=== PATIENT | male | born 1975 | race Caucasian/White ===

== ENCOUNTER 2022-02-05 11:49 | Inpatient (IN) | payer BC, SELFPAY ==
--- NOTE | ~2022-02-05 | XR_ITS ---
EXAMINATION: XR CHEST CLINICAL INFORMATION: Chest pain COMPARISON: None TECHNIQUE: 2 views of the chest were obtained. FINDINGS: The lungs are well-expanded and clear of acute pneumonic process. The heart size and pulmonary vascularity is normal. There is no pleural effusion. There are old healed right upper rib fractures. Old healed right clavicular fracture has been stabilized with metallic plate and screws. XR/XR chest 2V IMPRESSION: No acute cardiopulmonary process seen.
[2022-02-05 11:54] VITALS: BP 153/96; PULSE 105; RESP 19; TEMP 36.6; O2SAT 98; BMI 33.0
--- NOTE | 2022-02-05 11:59 | ECG_ITS ---
Test Reason : CHEST PAIN Blood Pressure : / mmHG Vent. Rate : 095 BPM Atrial Rate : 095 BPM P-R Int : 136 ms QRS Dur : 084 ms QT Int : 356 ms P-R-T Axes : 062 005 027 degrees QTc Int : 447 ms Normal sinus rhythm Normal ECG No previous ECGs available Referred By: Generic ED Physician Electronically Signed By:LINDA DOMINGUEZ
[2022-02-05 13:52] LABS: MANUAL DIFF FLAG NO
[2022-02-05 13:59] LABS: Basophils Percent Auto 0.4 % (0-2); Eosinophils Percent Auto 0.1 % (0-4); Hematocrit 46.1 % (42.0-52.0); Hemoglobin 15.9 g/dl (14.0-18.0); Imm Gran Abs Auto 0.04 X10*3/uL (0.00-0.03); Imm Gran Pct Auto 0.4 % (0.0-0.4); Lymphocytes Absolute Auto 1.4 X10*3/uL (1.2-4.9); Lymphocytes Percent Auto 15.1 % (20-40); Mean Corpuscular HGB Conc 34.5 g/dl (31.0-36.0); Mean Corpuscular Hemoglobin 30.7 pg (27.0-33.0); Mean Platelet Volume 10.1 fL (9.4-12.4); Monocytes Absolute Auto 0.9 X10*3/uL (0.1-1.2); Monocytes Percent Auto 9.1 % (2-11); Neutrophils Absolute Auto 7.1 x10*3/uL (2.0-8.3); Neutrophils Percent Auto 74.9 % (45-73); Platelet Count 183 X10*3/uL (160-400); Red Blood Count 5.18 X10*6/uL (4.60-5.80); Red Cell Distribution Width 12.6 % (11.0-16.0); White Blood Count 9.5 X10*3/uL (4.8-10.8)
[2022-02-05 14:09] LABS: Ethanol 246 mg/dL
[2022-02-05 14:11] LABS: Anion Gap 20 (12-20); Blood Urea Nitrogen 10 mg/dL (9-16); Calcium 9.4 mg/dL (8.4-10.2); Carbon Dioxide 24 mmol/L (22-29); Chloride 99 mmol/L (96-108); Creatinine Clr Calc Pharmacy 144.8; Estimated Glomerular Filt Rate > 60; Glucose Random 125 mg/dL (60-115); Potassium 4.1 mmol/L (3.3-5.1); Sodium 139 mmol/L (135-145)
[2022-02-05 14:18] LABS: Troponin-I High Sensitivity < 3.5 ng/L (<3.5-35.0)
[2022-02-05] MEDS: 0.9 % Sodium Chloride 1,000 ML 999 ML IV (14:40)
[2022-02-05 15:03] LABS: Magnesium 2.6 mg/dL (1.6-2.6)
--- NOTE | 2022-02-05 15:08 | ED_ITS ---
HPI - General Adult General Chief complaint: General Medical Stated complaint: chest tightness/anxiety Time Seen by Provider: 02/05/22 14:20 Source: patient and family Mode of arrival: ambulatory Limitations: no limitations History of Present Illness HPI narrative: 47-year-old male came in for evaluation of possible alcohol withdrawal. Patient just moved from [place] to [place] for a job, patient lost a job and feeling very anxious, patient was drinking alcohol for the past 5 days, history of withdrawal seizures in the past, last drink was 6- 8 hours ago, Patient feel depressed but no SI or HI, no hallucination, patient had multiple hospitalization for alcohol withdrawal. Patient is requesting hospitalization feels it is going to be bad withdrawal symptoms. Related Data Allergies Allergy/AdvReac Type Severity Reaction Status Date / Time No Known Allergies Allergy Verified 02/05/22 14:40 Review of Systems Review of Systems: All other systems are reviewed and are negative Constitutional: Reports as per HPI and Reports no additional constitutional complaints Eyes: Reports as per HPI and Reports no additional eye complaints Reports system reviewed and no additional complaints, except as documented Cardiovascular: Reports as per HPI and Reports no additional cardiovascular complaints Respiratory: Reports as per HPI and Reports no additional respiratory complaints Gastrointestinal: Reports as per HPI and Reports no additional gastrointestinal complaints Genitourinary: Reports no additional female genitourinary complaints Musculoskeletal: Reports no additional musculoskeletal complaints Skin/Breast: Reports system reviewed and no additional complaints, except as docu Psychiatric: Reports no additional psychiatric complaints Endocrine: Reports no additional endocrine complaints Hematologic/Lymphatic: Reports no additional hematologic/lymphatic complaints Allergic/Immunologic: Reports no additional allergic/immunologic complaints Reports system reviewed and no additional complaints, except as documented and Reports Abnormal speech present [facility] Social History Social History Advance Directives: No Advance Directives Information Provided: No Physical Exam ED Vital Signs: Vital Signs - 24 hr 02/05/22 11:54 Temperature 98 F Pulse Rate 105 H Respiratory Rate 19 Blood Pressure 153/96 H Pulse Oximetry 98 BMI result Body Mass Index 33.0 Vital signs have been reviewed as appeared to be correct. Blood pressure normal. Heart rate elevated. Respiration rate normal. Temperature normal. Oxygen saturation normal. Appearance: Alert. Oriented X3. No acute distress. Anxious Head: Normal external exam. Normocephalic. Atraumatic. No Grajeda signs noted. No raccoon eyes noted Eyes: PERRLA. EOMI. Conjunctiva and sclera normal. Eyelids normal. ENT: TM's Normal. Pharynx normal. Uvula midline. Moist mucous membranes. No trismus noted. No drooling noted. No muffled voice noted. Neck: Normal inspection. Neck supple. FROM. No adenopathy. Thyroid Normal. No meningeal signs. No neck mass noted. CVS: Normal heart rate and rhythm. Heart sound normal. No murmurs noted. Pulses normal throughout. Respiratory: No respiratory distress. Painless inspiration. Breath sounds normal. No wheezes/rales/rhonchi noted. Chest nontender. No accessory muscle usage noted or decreased air movement noted. Abdomen: Soft and nontender. Bowel sounds normal in all 4 quadrants. No distention noted. No organomegaly noted. No visible injury noted. Back: No CVA tenderness. Full range of motion noted. Skin: Skin warm and dry. Normal skin color. Normal skin turgor. No rashes/lesions/lacerations noted. Extremities: No lower extremity edema. Extremities exhibit normal range of motion. Extremities nontender. Mild involuntarily tremors Neuro: Oriented X 3. Cranial nerve exam: II-XII are grossly intact No motor deficit. No sensory deficit. Reflexes normal. Course Course Course Narrative: Assessment and plan 47-year-old male has been bingeing drinking alcohol for the past 5 days, history of withdrawal seizure, patient feels anxious with gradual worsening his tremors and fasciculation, CIWA score is 10, patient had multiple hospitalization for babble alcohol withdrawal and patient has subjective feeling that this will get worse. Will start the patient on phenobarb. Medical Decision Making Lab Data Lab results reviewed: Yes I reviewed the patient's lab results. Result diagrams: 02/05/22 13:39 02/05/22 13:39 Labs: Lab Results 02/05/22 02/05/22 02/05/22 Range/Units 13:39 13:39 13:39 WBC 9.5 (4.8-10.8) X10*3/uL RBC 5.18 (4.60-5.80) X10*6/uL Hgb 15.9 (14.0-18.0) g/dl Hct 46.1 (42.0-52.0) % MCV 89.0 (80.0-98.0) fL MCH 30.7 (27.0-33.0) pg MCHC 34.5 (31.0-36.0) g/dl RDW 12.6 (11.0-16.0) % Plt Count 183 (160-400) X10*3/uL MPV 10.1 (9.4-12.4) fL Immature Gran % (Auto) 0.4 (0.0-0.4) % Neut % (Auto) 74.9 H (45-73) % Lymph % (Auto) 15.1 L (20-40) % [place] % (Auto) 9.1 (2-11) % Eos % (Auto) 0.1 (0-4) % Baso % (Auto) 0.4 (0-2) % Lymph # (Auto) 1.4 (1.2-4.9) X10*3/uL [place] # (Auto) 0.9 (0.1-1.2) X10*3/uL Eos # (Auto) 0.0 (0.0-0.4) X10*3/uL Baso # (Auto) 0.0 (0.0-0.2) X10*3/uL Abs Immat Gran (auto) 0.04 H (0.00-0.03) X10*3/uL Absolute Neuts (auto) 7.1 (2.0-8.3) x10*3/uL Absolute Nucleated RBC 0.000 (0.0-0.012) X10*3/uL Nucleated RBC % (auto) 0.0 (0.0-0.2) /100WBC Sodium 139 (135-145) mmol/L Potassium 4.1 (3.3-5.1) mmol/L Chloride 99 (96-108) mmol/L Carbon Dioxide 24 (22-29) mmol/L Anion Gap 20 (12-20) BUN 10 (9-16) mg/dL Creatinine 0.85 (0.5-1.4) mg/dL Estim Creat Clear Calc 144.8 Estimated GFR > 60 Random Glucose 125 H (60-115) mg/dL Calcium 9.4 (8.4-10.2) mg/dL Magnesium 2.6 (1.6-2.6) mg/dL Troponin I High Sens < 3.5 (<3.5-35.0) ng/L Ethyl Alcohol mg/dL 02/05/22 Range/Units 13:39 WBC (4.8-10.8) X10*3/uL RBC (4.60-5.80) X10*6/uL Hgb (14.0-18.0) g/dl Hct (42.0-52.0) % MCV (80.0-98.0) fL MCH (27.0-33.0) pg MCHC (31.0-36.0) g/dl RDW (11.0-16.0) % Plt Count (160-400) X10*3/uL MPV (9.4-12.4) fL Immature Gran % (Auto) (0.0-0.4) % Neut % (Auto) (45-73) % Lymph % (Auto) (20-40) % [place] % (Auto) (2-11) % Eos % (Auto) (0-4) % Baso % (Auto) (0-2) % Lymph # (Auto) (1.2-4.9) X10*3/uL [place] # (Auto) (0.1-1.2) X10*3/uL Eos # (Auto) (0.0-0.4) X10*3/uL Baso # (Auto) (0.0-0.2) X10*3/uL Abs Immat Gran (auto) (0.00-0.03) X10*3/uL Absolute Neuts (auto) (2.0-8.3) x10*3/uL Absolute Nucleated RBC (0.0-0.012) X10*3/uL Nucleated RBC % (auto) (0.0-0.2) /100WBC Sodium (135-145) mmol/L Potassium (3.3-5.1) mmol/L Chloride (96-108) mmol/L Carbon Dioxide (22-29) mmol/L Anion Gap (12-20) BUN (9-16) mg/dL Creatinine (0.5-1.4) mg/dL Estim Creat Clear Calc Estimated GFR Random Glucose (60-115) mg/dL Calcium (8.4-10.2) mg/dL Magnesium (1.6-2.6) mg/dL Troponin I High Sens (<3.5-35.0) ng/L Ethyl Alcohol 246 mg/dL Discharge Plan Discharge Clinical Impression: Alcohol withdrawal, Anxiety Patient Disposition: Admitted As Inpatient
[2022-02-05 15:22] VITALS: BP 152/93; PULSE 102; RESP 17; O2SAT 93
--- NOTE | 2022-02-05 15:27 | PC.NURSE ---
pt reports feeling stressed out and anxious moved from [place] for work and he is not a daily drinker but do to the stress was binge drinking the last few days, reports having abd pain 7/10 a slight headache, no visible tremor at this time. pt states last drink was last night, vs stable
[2022-02-05] MEDS: PHENobarbitaL sodium 130 MG/ML VIAL 256.1 MG IM (15:38)
[2022-02-05 16:03] LABS: Alanine Aminotransferase 53 U/L (0-40); Albumin Level 4.7 g/dL (3.5-5.0); Alkaline Phosphatase 84 U/L (39-117); Aspartate Amino Transferase 53 U/L (5-37); Bilirubin Direct 0.2 mg/dL (0.0-0.5); Bilirubin Total 0.5 mg/dL (0.0-1.0); Total Protein 7.4 g/dL (6.5-8.0)
--- NOTE | 2022-02-05 16:08 | P.HPHOSP_ITS ---
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 He resides in [place] [facility]. He has been admitted to hospitals for alcohol withdrawal in the past, most recently in October 2021. He has also had alcohol withdrawal seizures in the past, though none in the past 5 years. He thinks he did have seizures as child, though. He has anxiety but does not see a primary care provider or a behavioral health provider. No other chronic medical problems. He is anxious and depressed but denies SI/HI or AH/VH. He feels tremulous and CIWA in the ED was 10. He was tachycardic and hypertensive. He was started on phenobarbital taper. He endorses chest pressure/chest pain but states he gets this whenever he is anxious. Review of Systems Review of Systems: Yes all other systems are reviewed and are negative [facility] Medical History (Updated 02/05/22 @ 16:13 by Yoni Snow MD) Anxiety History of fracture of clavicle Pertinent family history: Mother had leukemia and last year. She also had a CVA due to MVP. Surgical History (Updated 02/05/22 @ 16:13 by Yoni Snow MD) History of orthopedic surgery Social History Alcohol intake: current Patient Tobacco Use Status: Never used Tobacco Use of substances other than those prescribed or required for medical reasons: No Advance Directives: No Advance Directives Information Provided: No Narrative: EtOH binge drinking quit smoking tobacco 10 yr ago uses cannabis no other substances Meds Allergies Allergy/AdvReac Type Severity Reaction Status Date / Time No Known Allergies Allergy Verified 02/05/22 14:40 Active Medications: Current Medications Acetaminophen (Acetaminophen 325 Mg Tablet) 650 mg PO Q6H PRN PRN Reason: pain or fever Al Hydroxide/Mg Hydroxide (Magnesium Hydrox/Alum Hydrox 30 Ml Oral.Susp) 30 ml PO Q4H PRN PRN Reason: Indigestion Enoxaparin Sodium (Enoxaparin Sodium 40 Mg/0.4 Ml Syringe) 40 mg SUBCUT Q24H [place] Folic Acid (Folic Acid 1 Mg Tablet) 1 mg PO DAILY [facility] Lactated Ringer's (Lr) 1,000 mls @ 100 mls/hr IVCONT .Q10H [place] Medication (No Benzodiazepines) 1 each MISCELLANE DAILY [facility] Multivitamins/Vitamin C (Multivitamin Tablet) 1 tab PO DAILY [facility] Ondansetron HCl (Ondansetron Hcl 4 Mg/2 Ml Vial) 4 mg IVPUSH Q4H PRN PRN Reason: nausea/vomiting Phenobarbital (Phenobarbital 30 Mg Tablet) 60 mg PO BID [place]; Protocol Stop: 02/07/22 21:01 Phenobarbital (Phenobarbital 30 Mg Tablet) 30 mg PO BID [place]; Protocol Stop: 02/09/22 21:01 Phenobarbital (Phenobarbital 30 Mg Tablet) 30 mg PO DAILY [place]; Protocol Stop: 02/11/22 09:01 Phenobarbital Sodium (Phenobarbital Sodium 130 Mg/Ml Vial) 192.4 mg IM Q3H [place]; Protocol Stop: 02/05/22 21:01 Sodium Chloride (0.9 % Sodium Chloride Flush 3 Ml Syringe) 3 ml IVFLUSH QSHIFT [facility] Thiamine HCl (Thiamine Hcl 100 Mg Tablet) 100 mg PO DAILY [facility] Home Medications Medication Instructions Recorded Confirmed Last Taken Type No Known Home Meds 02/05/22 02/05/22 Unknown History Physical Exam Vital Signs and Narrative: Vital Signs: Last Vital Signs Temp 98 F 02/05/22 11:54 Pulse 102 H 02/05/22 15:22 Resp 17 02/05/22 15:22 BP 152/93 H 02/05/22 15:22 Pulse Ox 93 02/05/22 15:22 BMI result Body Mass Index 33.0 Gen: anxious, tremulous HEENT: sclera anicteric, moist mucus membranes Neck: supple Lungs: clear to auscultation bilaterally Heart: regular, tachycardic, no murmurs Abd: soft, non-tender, non-distended, obese Ext: no edema Skin: warm/well-perfused Neuro: alert and oriented x3, tremulous Psych: appropriate affect Results Labs CBC and Chem 7: 02/05/22 13:39 02/05/22 13:39 Labs: Laboratory Results - last 24 hr 02/05/22 02/05/22 02/05/22 13:39 13:39 13:39 MCV 89.0 MCH 30.7 MCHC 34.5 RDW 12.6 Plt Count 183 MPV 10.1 Immature Gran % (Auto) 0.4 Neut % (Auto) 74.9 H Lymph % (Auto) 15.1 L [place] % (Auto) 9.1 Eos % (Auto) 0.1 Baso % (Auto) 0.4 Lymph # (Auto) 1.4 [place] # (Auto) 0.9 Eos # (Auto) 0.0 Baso # (Auto) 0.0 Abs Immat Gran (auto) 0.04 H Absolute Neuts (auto) 7.1 Absolute Nucleated RBC 0.000 Nucleated RBC % (auto) 0.0 Anion Gap 20 Estim Creat Clear Calc 144.8 Estimated GFR > 60 Random Glucose 125 H Calcium 9.4 Magnesium 2.6 Total Bilirubin 0.5 Direct Bilirubin 0.2 AST 53 H ALT 53 H Alkaline Phosphatase 84 Total Protein 7.4 Albumin 4.7 Ethyl Alcohol 246 EKG shows NSR. Imaging Radiologist's Impressions: Impressions Chest X-Ray 02/05/22 12:36 IMPRESSION: No acute cardiopulmonary process seen. Assessment and Plan (1) Alcohol withdrawal: Status: Acute (2) Anxiety: Status: Acute Plan 47yo M visiting locally from [place] for work, presenting with severe alcohol withdrawal with history of prior withdrawal seizures. # alcohol withdrawal - admit to [facility]MC, place on phenobarbital taper, give PO vitamins, consult Addiction Medicine # anxiety/substance-induced mood disorder - Addiction Medicine consult # atypical chest pain - initial hsTn-I <3.5; repeat at 3 hr; EKG without ischemic changes # VTE ppx - LMWH # code - full In my professional opinion, patient likely will stay 2 midnights in hospital due to the above reasons [severe alcohol withdrawal] Quality Stroke Does the patient have a stroke diagnosis?: No VTE Prior VTE?: No VTE Risk Level:: Medical - moderate - high VTE Device Contraindication: N/A - Device Ordered VTE Drug Contraindication: N/A - Med Ordered
--- NOTE | 2022-02-05 16:11 | PHA.MEDREC ---
Pharmacy Consult ? Medication Reconciliation Pharmacy has completed the medication reconciliation.
[2022-02-05] MEDS: Thiamine HCL 100 MG TABLET PO (16:34)
[2022-02-05] MEDS: Enoxaparin Sodium 40 MG/0.4 ML SYRINGE SUBCUT (16:38)
[2022-02-05] MEDS: Lactated Ringers 1,000 ML 100 ML IVCONT (17:31)
[2022-02-05 17:58] VITALS: BP 152/72; PULSE 99; RESP 16; O2SAT 96
[2022-02-05 18:04] LABS: Troponin-I High Sensitivity 4.2 ng/L (<3.5-35.0)
[2022-02-05 18:08] LABS: COVID-19 Test Negative (Negative)
[2022-02-05] MEDS: PHENobarbitaL sodium 130 MG/ML VIAL 192.4 MG IM ×2 (18:10→21:01)
--- NOTE | 2022-02-05 18:48 | PC.NURSE ---
report given to overflow
--- NOTE | 2022-02-05 21:28 | PC.NURSE ---
Pt arrived from ED into overflow bed 4 after report received from CINDI Nevarez at change of shift. Pt has family at bedside. Pt alert and oriented X3, pleasant and cooperative but anxious. Pt requesting something for anxiety and for sleep. Pt also stated the beeping on the tele monitor had to stop or he was leaving. The volume was lowered as low as it will go (1) and staff attempted to find him some ear plugs. Dr notified about the patients med request. LS-CTA. No cough, sob. BS+. Pt denies N/V/D. Voiding in urinal. PP+, no edema. Skin intact. Pt denies pain/discomfort. IV fluids infusing as ordered. See charting for CIWA. Will continue to monitor.
[2022-02-05] MEDS: hydrOXYzine HCL 25 MG TABLET PO (23:16)
[2022-02-05] MEDS: Melatonin 3 MG TABLET 6 MG PO (23:16)
[2022-02-06] VITALS (7 sets, daily range): BP systolic 134–175; BP diastolic 72–96; PULSE 70–118; RESP 16–19; TEMP 36.1–36.6; O2SAT 94–96
--- NOTE | 2022-02-06 00:12 | PC.NURSE ---
Patient given medications for anxiety and sleep per his request around 2315. Pt has a family member who is staying with him in room. Pt resting comfortably at present time. Will continue to monitor.
[2022-02-06] MEDS: Lactated Ringers 1,000 ML 100 ML IVCONT ×2 (05:58→16:16)
[2022-02-06 06:24] LABS: Hematocrit 40.9 % (42.0-52.0); Hemoglobin 13.9 g/dl (14.0-18.0); Mean Corpuscular Hemoglobin 30.5 pg (27.0-33.0); Mean Corpuscular Volume 89.9 fL (80.0-98.0); Mean Platelet Volume 10.1 fL (9.4-12.4); Platelet Count 142 X10*3/uL (160-400); Red Blood Count 4.55 X10*6/uL (4.60-5.80); Red Cell Distribution Width 12.6 % (11.0-16.0); White Blood Count 8.3 X10*3/uL (4.8-10.8)
[2022-02-06 06:30] LABS: Prothrombin Time 11.1 SEC (9.9-13.0)
[2022-02-06 06:51] LABS: Alanine Aminotransferase 43 U/L (0-40); Albumin Level 3.9 g/dL (3.5-5.0); Alkaline Phosphatase 69 U/L (39-117); Anion Gap 17 (12-20); Aspartate Amino Transferase 45 U/L (5-37); Blood Urea Nitrogen 14 mg/dL (9-16); Calcium 8.7 mg/dL (8.4-10.2); Carbon Dioxide 22 mmol/L (22-29); Chloride 102 mmol/L (96-108); Creatinine Clr Calc Pharmacy 150.1; Estimated Glomerular Filt Rate > 60; Glucose Random 103 mg/dL (60-115); Magnesium 2.3 mg/dL (1.6-2.6); Sodium 137 mmol/L (135-145); Total Protein 6.1 g/dL (6.5-8.0)
--- NOTE | 2022-02-06 08:39 | MHC.CM.PN ---
THIS CM ATTEMPTED TO MEET W/PT HOWEVER PT OFF UNIT, CM WILL REVISIT.
[2022-02-06 09:14] LABS: Troponin-I High Sensitivity < 3.5 ng/L (<3.5-35.0)
[2022-02-06] MEDS: hydrOXYzine HCL 25 MG TABLET PO ×3 (10:04→22:58)
[2022-02-06] MEDS: Folic Acid 1 MG TABLET PO (10:04)
[2022-02-06] MEDS: Multivitamin TABLET 1 TAB PO (10:04)
[2022-02-06] MEDS: PHENobarbitaL 30 MG TABLET 60 MG PO ×2 (10:04→20:39)
[2022-02-06] MEDS: Thiamine HCL 100 MG TABLET PO (10:04)
--- NOTE | 2022-02-06 11:34 | P.PNIM_ITS ---
Subjective Subjective Date of Service: 02/06/22 Interval History: Anxious but less tremulous. Tolerated breakfast but some nausea + epigastric discomfort Review of Systems Review of Systems: Yes all other systems are reviewed and are negative Physical Exam Vital Signs: Vital Signs: Last Vital Signs Temp 97.8 F 02/06/22 09:47 Pulse 95 02/06/22 09:47 Resp 18 02/06/22 09:47 BP 175/91 H 02/06/22 09:47 Pulse Ox 96 02/06/22 09:47 BMI result Body Mass Index 33.0 Gen: tired HEENT: sclera anicteric, moist mucus membranes Neck: supple Lungs: clear to auscultation bilaterally Heart: regular rate and rhythm, no murmurs Abd: soft, minimially tender, no reboud, obese Ext: no edema Skin: warm/well-perfused Neuro: alert and oriented x3, no focal findings Psych: appropriate affect Objective Data Active Medications Acetaminophen (Acetaminophen 325 Mg Tablet) 650 mg PO Q6H PRN PRN Reason: pain or fever Al Hydroxide/Mg Hydroxide (Magnesium Hydrox/Alum Hydrox 30 Ml Oral.Susp) 30 ml PO Q4H PRN PRN Reason: Indigestion Enoxaparin Sodium (Enoxaparin Sodium 40 Mg/0.4 Ml Syringe) 40 mg SUBCUT Q24H [facility] Last Admin: 02/05/22 16:38 Dose: 40 mg Documented by: KAY Folic Acid (Folic Acid 1 Mg Tablet) 1 mg PO DAILY [facility] Last Admin: 02/06/22 10:04 Dose: 1 mg Documented by: COTEMA Hydroxyzine HCl (Hydroxyzine Hcl 25 Mg Tablet) 25 mg PO Q6H PRN PRN Reason: Anxiety Last Admin: 02/06/22 10:04 Dose: 25 mg Documented by: JOSE Lactated Ringer's (Lr) 1,000 mls @ 100 mls/hr IVCONT .Q10H [facility] Last Admin: 02/06/22 05:58 Dose: 100 mls/hr Documented by: ALEJANDRO Medication (No Benzodiazepines) 1 each MISCELLANE DAILY [facility] Melatonin (Melatonin 3 Mg Tablet) 6 mg PO BEDTIME PRN PRN Reason: Sleep Last Admin: 02/05/22 23:16 Dose: 6 mg Documented by: HO.[email or web address] Multivitamins/Vitamin C (Multivitamin Tablet) 1 tab PO DAILY [facility] Last Admin: 02/06/22 10:04 Dose: 1 tab Documented by: JOSE Ondansetron HCl (Ondansetron Hcl 4 Mg/2 Ml Vial) 4 mg IVPUSH Q4H PRN PRN Reason: nausea/vomiting Phenobarbital (Phenobarbital 30 Mg Tablet) 60 mg PO BID [facility]; Protocol Stop: 02/07/22 21:01 Last Admin: 02/06/22 10:04 Dose: 60 mg Documented by: COTPERCY Phenobarbital (Phenobarbital 30 Mg Tablet) 30 mg PO BID [facility]; Protocol Stop: 02/09/22 21:01 Phenobarbital (Phenobarbital 30 Mg Tablet) 30 mg PO DAILY [facility]; Protocol Stop: 02/11/22 09:01 Sodium Chloride (0.9 % Sodium Chloride Flush 3 Ml Syringe) 3 ml IVFLUSH QSHIFT [facility] Last Admin: 02/06/22 08:22 Dose: Not Given Documented by: KRISTIAN Non-Admin Reason: IV Running Thiamine HCl (Thiamine Hcl 100 Mg Tablet) 100 mg PO DAILY [facility] Last Admin: 02/06/22 10:04 Dose: 100 mg Documented by: JOSE Labs CBC & Chem 7: 02/06/22 06:01 02/06/22 06:01 Labs: Laboratory Results - last 24 hr 02/05/22 02/05/22 02/05/22 13:39 13:39 13:39 MCV 89.0 MCH 30.7 MCHC 34.5 RDW 12.6 Plt Count 183 MPV 10.1 Immature Gran % (Auto) 0.4 Neut % (Auto) 74.9 H Lymph % (Auto) 15.1 L [place] % (Auto) 9.1 Eos % (Auto) 0.1 Baso % (Auto) 0.4 Lymph # (Auto) 1.4 [place] # (Auto) 0.9 Eos # (Auto) 0.0 Baso # (Auto) 0.0 Abs Immat Gran (auto) 0.04 H Absolute Neuts (auto) 7.1 Absolute Nucleated RBC 0.000 Nucleated RBC % (auto) 0.0 PT INR Anion Gap 20 Estim Creat Clear Calc 144.8 Estimated GFR > 60 Random Glucose 125 H Calcium 9.4 Magnesium 2.6 Total Bilirubin 0.5 Direct Bilirubin 0.2 AST 53 H ALT 53 H Alkaline Phosphatase 84 Total Protein 7.4 Albumin 4.7 Ethyl Alcohol 246 COVID-19 ([facility]) COVID-19 Clin Com 02/05/22 02/06/22 02/06/22 17:36 06:01 06:01 MCV 89.9 MCH 30.5 MCHC 34.0 RDW 12.6 Plt Count 142 L MPV 10.1 Immature Gran % (Auto) Neut % (Auto) Lymph % (Auto) [place] % (Auto) Eos % (Auto) Baso % (Auto) Lymph # (Auto) [place] # (Auto) Eos # (Auto) Baso # (Auto) Abs Immat Gran (auto) Absolute Neuts (auto) Absolute Nucleated RBC 0.000 Nucleated RBC % (auto) 0.0 PT 11.1 INR 1.0 Anion Gap Estim Creat Clear Calc Estimated GFR Random Glucose Calcium Magnesium Total Bilirubin Direct Bilirubin AST ALT Alkaline Phosphatase Total Protein Albumin Ethyl Alcohol COVID-19 ([facility]) Negative COVID-19 Clin Com See Note 02/06/22 06:01 MCV MCH MCHC RDW Plt Count MPV Immature Gran % (Auto) Neut % (Auto) Lymph % (Auto) [place] % (Auto) Eos % (Auto) Baso % (Auto) Lymph # (Auto) [place] # (Auto) Eos # (Auto) Baso # (Auto) Abs Immat Gran (auto) Absolute Neuts (auto) Absolute Nucleated RBC Nucleated RBC % (auto) PT INR Anion Gap 17 Estim Creat Clear Calc 150.1 Estimated GFR > 60 Random Glucose 103 Calcium 8.7 D Magnesium 2.3 Total Bilirubin 1.0 Direct Bilirubin AST 45 H ALT 43 H Alkaline Phosphatase 69 Total Protein 6.1 L Albumin 3.9 Ethyl Alcohol COVID-19 ([facility]) COVID-19 Clin Com Assessment and Plan (1) Alcohol withdrawal: Status: Acute Plan 47yo M visiting locally from [place] for work, presenting with severe alcohol withdrawal with history of prior withdrawal seizures. # alcohol withdrawal - continue phenobarbital taper + B vitamins. Addiction Medicine consult pending # anxiety/substance-induced mood disorder - Addiction Medicine consult # alcoholic gastritis - PPI # atypical chest pain - no ischemic changes on EKG, hs-Tn-I low, likely due to anxiety # VTE ppx - LMWH In my clinical judgment, the patient requires continued hospitalization for ongoing management of alcohol withdrawal and is high risk for withdrawal seizures Quality Stroke Does the patient have a stroke diagnosis?: No VTE Prior VTE?: No VTE Risk Level:: Medical - moderate - high VTE Device Contraindication: N/A - Device Ordered VTE Drug Contraindication: N/A - Med Ordered
--- NOTE | 2022-02-06 12:30 | HO.ADDICT_ITS ---
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 He resides in [facility].? He has been admitted to hospitals for alcohol withdrawal in the past, most recently in October 2021.? He has also had alcohol withdrawal seizures in the past, though none in the past 5 years.? He thinks he did have seizures as child, though.? He has anxiety but does not see a primary care provider or a behavioral health provider.? No other chronic medical problems. He is anxious and depressed but denies SI/HI or AH/VH.? He feels tremulous and CIWA in the ED was 10. He was tachycardic and hypertensive.? He was started on phenobarbital taper. He endorses chest pressure/chest pain but states he gets this whenever he is anxious. Patient seen in room 354. and RSRN present during interview. Patient awake , alert and engaged in interview. Anxious affect. Reports he has never received any type of treatment for alcohol use disorder, aside from hospitalization(s) to treat withdrawal. In terms of family history he reports grandparents likely had alcohol use disorder Denies any other substance use Not engaged with any providers or recovery supports Identified anxiety as a trigger to alcohol use as well as a coping strategy for stuff I haven't dealt with Verbalizing interest in addressing alcohol use and would like to trial medication. Discussed options with patient and . Reviewed side effects, dosing, goals of treatment Review of Systems Constitutional: Reports as per HPI Diagnostics Vital Signs (24Hr): Vital Signs - 24 hr 02/05/22 15:22 02/05/22 17:58 02/06/22 00:00 Temperature Pulse Rate 102 H 99 100 Respiratory Rate 17 16 16 Blood Pressure 152/93 H 152/72 H 157/81 H Pulse Oximetry 93 96 02/06/22 04:01 02/06/22 06:25 02/06/22 09:47 Temperature 97.0 F 97.8 F Pulse Rate 70 93 95 Respiratory Rate 16 16 18 Blood Pressure 134/85 175/91 H Pulse Oximetry 94 96 BMI result Body Mass Index 33.0 Labs Results: 02/06/22 06:01 02/06/22 06:01 Labs: Laboratory Results - last 48 hr 02/05/22 02/05/22 02/05/22 13:39 13:39 13:39 WBC 9.5 RBC 5.18 Hgb 15.9 Hct 46.1 MCV 89.0 MCH 30.7 MCHC 34.5 RDW 12.6 Plt Count 183 MPV 10.1 Immature Gran % (Auto) 0.4 Neut % (Auto) 74.9 H Lymph % (Auto) 15.1 L Kimball % (Auto) 9.1 Eos % (Auto) 0.1 Baso % (Auto) 0.4 Lymph # (Auto) 1.4 Kimball # (Auto) 0.9 Eos # (Auto) 0.0 Baso # (Auto) 0.0 Abs Immat Gran (auto) 0.04 H Absolute Neuts (auto) 7.1 Absolute Nucleated RBC 0.000 Nucleated RBC % (auto) 0.0 PT INR Sodium 139 Potassium 4.1 Chloride 99 Carbon Dioxide 24 Anion Gap 20 BUN 10 Creatinine 0.85 Estim Creat Clear Calc 144.8 Estimated GFR > 60 Random Glucose 125 H Calcium 9.4 Magnesium 2.6 Total Bilirubin 0.5 Direct Bilirubin 0.2 AST 53 H ALT 53 H Alkaline Phosphatase 84 Troponin I High Sens < 3.5 Total Protein 7.4 Albumin 4.7 Ethyl Alcohol COVID-19 ([facility]) COVID-19 Clin Com 02/05/22 02/05/22 02/05/22 13:39 17:36 17:38 WBC RBC Hgb Hct MCV MCH MCHC RDW Plt Count MPV Immature Gran % (Auto) Neut % (Auto) Lymph % (Auto) Kimball % (Auto) Eos % (Auto) Baso % (Auto) Lymph # (Auto) Kimball # (Auto) Eos # (Auto) Baso # (Auto) Abs Immat Gran (auto) Absolute Neuts (auto) Absolute Nucleated RBC Nucleated RBC % (auto) PT INR Sodium Potassium Chloride Carbon Dioxide Anion Gap BUN Creatinine Estim Creat Clear Calc Estimated GFR Random Glucose Calcium Magnesium Total Bilirubin Direct Bilirubin AST ALT Alkaline Phosphatase Troponin I High Sens 4.2 Total Protein Albumin Ethyl Alcohol 246 COVID-19 ([facility]) Negative COVID-19 [facility] Com See Note 02/06/22 02/06/22 02/06/22 06:01 06:01 06:01 WBC 8.3 RBC 4.55 L Hgb 13.9 L Hct 40.9 L MCV 89.9 MCH 30.5 MCHC 34.0 RDW 12.6 Plt Count 142 L MPV 10.1 Immature Gran % (Auto) Neut % (Auto) Lymph % (Auto) Kimball % (Auto) Eos % (Auto) Baso % (Auto) Lymph # (Auto) Kimball # (Auto) Eos # (Auto) Baso # (Auto) Abs Immat Gran (auto) Absolute Neuts (auto) Absolute Nucleated RBC 0.000 Nucleated RBC % (auto) 0.0 PT 11.1 INR 1.0 Sodium 137 Potassium 4.0 Chloride 102 Carbon Dioxide 22 Anion Gap 17 BUN 14 Creatinine 0.82 Estim Creat Clear Calc 150.1 Estimated GFR > 60 Random Glucose 103 Calcium 8.7 D Magnesium 2.3 Total Bilirubin 1.0 Direct Bilirubin AST 45 H ALT 43 H Alkaline Phosphatase 69 Troponin I High Sens Total Protein 6.1 L Albumin 3.9 Ethyl Alcohol COVID-19 ([facility]) COVID-19 [facility] Com 02/06/22 08:32 WBC RBC Hgb Hct MCV MCH MCHC RDW Plt Count MPV Immature Gran % (Auto) Neut % (Auto) Lymph % (Auto) Kimball % (Auto) Eos % (Auto) Baso % (Auto) Lymph # (Auto) Kimball # (Auto) Eos # (Auto) Baso # (Auto) Abs Immat Gran (auto) Absolute Neuts (auto) Absolute Nucleated RBC Nucleated RBC % (auto) PT INR Sodium Potassium Chloride Carbon Dioxide Anion Gap BUN Creatinine Estim Creat Clear Calc Estimated GFR Random Glucose Calcium Magnesium Total Bilirubin Direct Bilirubin AST ALT Alkaline Phosphatase Troponin I High Sens < 3.5 Total Protein Albumin Ethyl Alcohol COVID-19 ([facility]) COVID-19 [facility] Com Imaging Radiology Impressions: ITS Impressions Chest X-Ray 02/05/22 12:36 IMPRESSION: No acute cardiopulmonary process seen. Mental Status Exam Mental Status Exam Patient Appearance: Perspiring Patient Orientation: Person, Place, Time and Situation Level of Consciousness: Awake and Appropriate Patient Behavior: Appropriate and Anxious Mood Description: Anxious and Sad Thought Process: Goal Oriented Thought Content: positive for Goal Oriented Judgement: Fair Medications Medications Current Medications Acetaminophen (Acetaminophen 325 Mg Tablet) 650 mg PO Q6H PRN PRN Reason: pain or fever Al Hydroxide/Mg Hydroxide (Magnesium Hydrox/Alum Hydrox 30 Ml Oral.Susp) 30 ml PO Q4H PRN PRN Reason: Indigestion Enoxaparin Sodium (Enoxaparin Sodium 40 Mg/0.4 Ml Syringe) 40 mg SUBCUT Q24H [facility] Last Admin: 02/05/22 16:38 Dose: 40 mg Documented by: Folic Acid (Folic Acid 1 Mg Tablet) 1 mg PO DAILY [facility] Last Admin: 02/06/22 10:04 Dose: 1 mg Documented by: Hydroxyzine HCl (Hydroxyzine Hcl 25 Mg Tablet) 25 mg PO Q6H PRN PRN Reason: Anxiety Last Admin: 02/06/22 10:04 Dose: 25 mg Documented by: Lactated Ringer's (Lr) 1,000 mls @ 100 mls/hr IVCONT .Q10H [facility] Last Admin: 02/06/22 11:38 Dose: Not Given Documented by: Medication (No Benzodiazepines) 1 each MISCELLANE DAILY [facility] Melatonin (Melatonin 3 Mg Tablet) 6 mg PO BEDTIME PRN PRN Reason: Sleep Last Admin: 02/05/22 23:16 Dose: 6 mg Documented by: Multivitamins/Vitamin C (Multivitamin Tablet) 1 tab PO DAILY [facility] Last Admin: 02/06/22 10:04 Dose: 1 tab Documented by: Omeprazole (Omeprazole 20 Mg Capsule.Dr) 20 mg PO DAILY@0630 [facility] Last Admin: 02/06/22 11:57 Dose: Not Given Documented by: Ondansetron HCl (Ondansetron Hcl 4 Mg/2 Ml Vial) 4 mg IVPUSH Q4H PRN PRN Reason: nausea/vomiting Phenobarbital (Phenobarbital 30 Mg Tablet) 60 mg PO BID [facility]; Protocol Stop: 02/07/22 21:01 Last Admin: 02/06/22 10:04 Dose: 60 mg Documented by: Phenobarbital (Phenobarbital 30 Mg Tablet) 30 mg PO BID [facility]; Protocol Stop: 02/09/22 21:01 Phenobarbital (Phenobarbital 30 Mg Tablet) 30 mg PO DAILY [facility]; Protocol Stop: 02/11/22 09:01 Sodium Chloride (0.9 % Sodium Chloride Flush 3 Ml Syringe) [facility] Last Admin: 02/06/22 08:22 Dose: Not Given Documented by: Thiamine HCl (Thiamine Hcl 100 Mg Tablet) 100 mg PO DAILY [place] Last Admin: 02/06/22 10:04 Dose: 100 mg Documented by: Allergies Allergies Allergy/AdvReac Type Severity Reaction Status Date / Time No Known Allergies Allergy Verified 02/05/22 14:40 Assessment & Plan Assessment & Plan (1) Alcohol use disorder, severe, dependence: Status: Acute Code(s): F10.20 - Alcohol dependence, uncomplicated Assessment and Plan: * RSRN to provide literature for patient and to review regarding AUD and treatment options * Naltrexone appropriate once ready for discharge * Community services to be folowed up on by patient and as they reside in [place] I spent _50 minutes with the patient and/or on the patient floor today, g reater than?50% of which was spent counseling/coordinating care. PMFSH Past Medical History Medical History (Updated 02/06/22 @ 12:44 by Batsheva Palm CNP) Anxiety History of fracture of clavicle Surgical History Surgical History (Updated 02/05/22 @ 16:13 by Yoni Snow MD) History of orthopedic surgery Social History Social History Household Members: Significant Other Housing: House Do you presently have visiting nurse or other home services: No Alcohol intake: current Patient Tobacco Use Status: Never used Tobacco Use of substances other than those prescribed or required for medical reasons: No Have you been hit, kicked, punched, or otherwise hurt by someone within the past year? If so, by whom?: No Do you feel safe in your current relationship?: Yes Is there a partner from a previous relationship who is making you feel unsafe now?: No Are you made to feel afraid or neglected: No Advance Directives: No Advance Directives Information Provided: No Advance Directives on File: No Do you have thoughts of harming others: None Do you have a plan to hurt others: No Plan Recently lost weight without trying: No How much weight loss: Not applicable Eating poorly because of decreased appetite: No Nutrition screen score: 0 Nutrition Risks: No Nutritional Risk Poor oral hygiene: No
--- NOTE | 2022-02-06 15:28 | MHC.CM.PN ---
EMR REVIEWED, CM MET W/PT WHO REPORTS HE LIVES W/, IS INDEPENDENT W/ALL CARE, PT DENIES USE OF DME, NO SERVICES AND PT REPORTS HE HAS NO PCP, NO HCP, PT DECLINES TO COMPLETE AN HCP AND REPORTS HE PLANS ON RETURNING TO [place] W/ AND HE WAS HERE IN [facility] FOR WORK. D/C PLAN: PT DIOSCHARGED HOME SELF-CARE W/ FOR TRANSPORT PFIZER VACCINE X3
[2022-02-06] MEDS: Enoxaparin Sodium 40 MG/0.4 ML SYRINGE SUBCUT (16:16)
[2022-02-07] MEDS: Lactated Ringers 1,000 ML 100 ML IVCONT (02:01)
[2022-02-07 03:44] VITALS: BP 130/71; PULSE 76; RESP 18; TEMP 36.6; O2SAT 97
[2022-02-07] MEDS: Omeprazole 20 MG CAPSULE.DR PO (06:12)
[2022-02-07 08:00] VITALS: BP 140/71; PULSE 84; RESP 18; TEMP 36.6; O2SAT 96
[2022-02-07] MEDS: Thiamine HCL 100 MG TABLET PO (09:42)
[2022-02-07] MEDS: Multivitamin TABLET 1 TAB PO (09:42)
[2022-02-07] MEDS: Folic Acid 1 MG TABLET PO (09:42)
[2022-02-07] MEDS: PHENobarbitaL 30 MG TABLET 60 MG PO (09:42)
[2022-02-07] MEDS: 0.9 % Sodium Chloride Flush 3 ML SYRINGE IVFLUSH (09:43)
[2022-02-07 11:01] VITALS: BP 160/92; PULSE 85; RESP 18; TEMP 37.1; O2SAT 95
--- NOTE | 2022-02-07 11:29 | P.DS_ITS ---
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 He resides in [facility].? He has been admitted to hospitals for alcohol withdrawal in the past, most recently in October 2021.? He has also had alcohol withdrawal seizures in the past, though none in the past 5 years.? He thinks he did have seizures as child, though.? He has anxiety but does not see a primary care provider or a behavioral health provider.? No other chronic medical problems. He is anxious and depressed but denies SI/HI or AH/VH.? He feels tremulous and CIWA in the ED was 10. He was tachycardic and hypertensive.? He was started on phenobarbital taper. He endorses chest pressure/chest pain but states he gets this whenever he is anxious. He was admitted to the medical/surgical floor and treated for alcohol withdrawal with phenobarbital IM/PO taper. He was given B vitamin supplementation. He had no seizures. His symptoms improved. He met with the Addiction Medicine team. He was prescribed naltrexone upon discharge. He will seek Addiction Medicine and Psychiatry care back in [place]. \ Time Spent with Patient Time attestation: Total time spent providing and/or coordinating discharge services: Discharge coordination time: Greater than 30 minutes Quality: Stroke Does the patient have a stroke diagnosis?: No Physical Exam Vital Signs: Vital Signs: Last Vital Signs Temp 98.7 F 02/07/22 11:01 Pulse 85 02/07/22 11:01 Resp 18 02/07/22 11:01 BP 160/92 H 02/07/22 11:01 Pulse Ox 95 02/07/22 11:01 BMI result Body Mass Index 33.0 Gen: in no acute distress HEENT: sclera anicteric, moist mucus membranes Neck: supple Lungs: clear to auscultation bilaterally Heart: regular rate and rhythm, no murmurs Abd: soft, non-tender, non-distended, obese Ext: no edema Skin: warm/well-perfused Neuro: alert and oriented x3, no focal findings Psych: appropriate affect DS: Data Data Completed and Pending Completed studies during hospitalization [Text1]: Laboratory Results WBC 8.3 X10*3/uL (4.8-10.8) 02/06/22 06:01 RBC 4.55 X10*6/uL (4.60-5.80) L 02/06/22 06:01 Hgb 13.9 g/dl (14.0-18.0) L 02/06/22 06:01 Hct 40.9 % (42.0-52.0) L 02/06/22 06:01 MCV 89.9 fL (80.0-98.0) 02/06/22 06:01 MCH 30.5 pg (27.0-33.0) 02/06/22 06:01 MCHC 34.0 g/dl (31.0-36.0) 02/06/22 06:01 RDW 12.6 % (11.0-16.0) 02/06/22 06:01 Plt Count 142 X10*3/uL (160-400) L 02/06/22 06:01 MPV 10.1 fL (9.4-12.4) 02/06/22 06:01 Immature Gran % (Auto) 0.4 % (0.0-0.4) 02/05/22 13:39 Neut % (Auto) 74.9 % (45-73) H 02/05/22 13:39 Lymph % (Auto) 15.1 % (20-40) L 02/05/22 13:39 [place] % (Auto) 9.1 % (2-11) 02/05/22 13:39 Eos % (Auto) 0.1 % (0-4) 02/05/22 13:39 Baso % (Auto) 0.4 % (0-2) 02/05/22 13:39 Lymph # (Auto) 1.4 X10*3/uL (1.2-4.9) 02/05/22 13:39 [place] # (Auto) 0.9 X10*3/uL (0.1-1.2) 02/05/22 13:39 Eos # (Auto) 0.0 X10*3/uL (0.0-0.4) 02/05/22 13:39 Baso # (Auto) 0.0 X10*3/uL (0.0-0.2) 02/05/22 13:39 Abs Immat Gran (auto) 0.04 X10*3/uL (0.00-0.03) H 02/05/22 13:39 Absolute Neuts (auto) 7.1 x10*3/uL (2.0-8.3) 02/05/22 13:39 Absolute Nucleated RBC 0.000 X10*3/uL (0.0-0.012) 02/06/22 06:01 Nucleated RBC % (auto) 0.0 /100WBC (0.0-0.2) 02/06/22 06:01 PT 11.1 SEC (9.9-13.0) 02/06/22 06:01 INR 1.0 (0.9-1.1) 02/06/22 06:01 Sodium 137 mmol/L (135-145) 02/06/22 06:01 Potassium 4.0 mmol/L (3.3-5.1) 02/06/22 06:01 Chloride 102 mmol/L (96-108) 02/06/22 06:01 Carbon Dioxide 22 mmol/L (22-29) 02/06/22 06:01 Anion Gap 17 (12-20) 02/06/22 06:01 BUN 14 mg/dL (9-16) 02/06/22 06:01 Creatinine 0.82 mg/dL (0.5-1.4) 02/06/22 06:01 Estim Creat Clear Calc 150.1 02/06/22 06:01 Estimated GFR > 60 02/06/22 06:01 Random Glucose 103 mg/dL (60-115) 02/06/22 06:01 Calcium 8.7 mg/dL (8.4-10.2) D 02/06/22 06:01 Magnesium 2.3 mg/dL (1.6-2.6) 02/06/22 06:01 Total Bilirubin 1.0 mg/dL (0.0-1.0) 02/06/22 06:01 Direct Bilirubin 0.2 mg/dL (0.0-0.5) 02/05/22 13:39 AST 45 U/L (5-37) H 02/06/22 06:01 ALT 43 U/L (0-40) H 02/06/22 06:01 Alkaline Phosphatase 69 U/L (39-117) 02/06/22 06:01 Troponin I High Sens < 3.5 ng/L (<3.5-35.0) 02/06/22 08:32 Total Protein 6.1 g/dL (6.5-8.0) L 02/06/22 06:01 Albumin 3.9 g/dL (3.5-5.0) 02/06/22 06:01 Ethyl Alcohol 246 mg/dL 02/05/22 13:39 COVID-19 ([facility]) Negative (Negative) 02/05/22 17:36 COVID-19 Clin Com See Note 02/05/22 17:36 Impressions Chest X-Ray 02/05/22 12:36 IMPRESSION: No acute cardiopulmonary process seen. Discharge Plan Discharge Patient Disposition: Home, Self-Care Discharge Diagnosis: alcohol withdrawal, alcohol use disorder Referrals: Physician,None [Primary Care Provider] - 1 Week Discharge Medications: New naltrexone 50 mg tablet 50 mg PO DAILY Qty: 30 0RF Rx Instructions: take 1/2 tab daily for two days, then increase to 1 tab daily folic acid 1 mg Tablet 1 mg PO DAILY Qty: 30 0RF multivitamin [Daily-Alla] Tablet 1 tab PO DAILY Qty: 30 0RF thiamine mononitrate (vit B1) 100 mg Tablet 100 mg PO DAILY Qty: 30 0RF Discharge Orders: Discharge Order (Routine); Ordered 02/07/22 Ordered By: Yoni Snow Diet: advance to usual diet Activity on Discharge: no alcohol Stand Alone Forms: Patient Portal Discharge page Care Plan Goals: sobriety Health Concerns: alcohol withdrawal, alcohol use disorder Plan of Treatment: take naltrexone 50 mg daily to take away craving for alcohol do not drink alcohol; you were given phenobarbital for withdrawal treatment and the combination with alcohol may be dangerous take vitamins as prescribed seek Primary Care, Addiction Medicine, and Psychiatry care in [place] Assessment: see Discharge Summary Patient Instructions: Naltrexone (By mouth), Alcohol Withdrawal (DC), Alcohol Use Disorder (DC)
--- NOTE | 2022-02-07 12:02 | MHC.CM.PN ---
PT WILL DC HOME TODAY WITH NO SERVICES TO TRANSPORT
== END 2022-02-07 13:30 | disposition home or self-care (01) | DRG 775 ==
LOC: HO.ED 15:22 → HO.EDOVER 16:52 → HO.S3 02-06 07:37
PROVIDERS: Admitting Provider Family Medicine; Emergency Provider Emergency Medicine; Visit Provider Family Medicine
DX: F10.239 Alcohol dependence with withdrawal, unspecified (principal); F10.280 Alcohol dependence with alcohol-induced anxiety disorder; K29.20 Alcoholic gastritis without bleeding; Z20.822 Contact with and (suspected) exposure to COVID-19; Z79.899 Other long term (current) drug therapy
CPT/HCPCS: 36415; 71046; 80048; 80053; 80076; 82077; 83735; 84484; 85025; 85027; 85610; 87635; 93005; 96360; 96372; 99285; J1650; J2560